=== PATIENT | male | born 2000 | race Caucasian/White ===

== ENCOUNTER 2018-02-11 18:30 | Emergency (ER) | payer SELFPAY ==
[2018-02-11] MEDS ORDERED: Lidocaine 1% with EPINEPHrine 1:100,000 30 ML MDV INJECT ONE (19:06)
[2018-02-11] MEDS ORDERED: Bacitracin Oint 1 GM U/D Packet TOP ONE (19:07)
--- NOTE | 2018-02-11 20:01 | EDM.PDOC ---
ED HPI GENERAL MEDICAL PROBLEM - General Chief Complaint: ENT Problem Stated Complaint: [id number] really busted lip Time Seen by Provider: 02/11/18 19:00 Source of Information: Reports: Patient, Family History Limitations: Reports: No Limitations - History of Present Illness INITIAL COMMENTS - FREE TEXT/NARRATIVE: Palying golf with friend and standing behind when friend was swinging. Stuck in mouth area, Cut to upper lip. No jaw or tooth pain Upper Lip Pain Score (Numeric/FACES): 2 - Related Data Allergies Allergy/AdvReac Type Severity Reaction Status Date / Time No Known Allergies Allergy Verified 12/29/15 01:52 Home Meds: Home Meds Ibuprofen 4 tab PO ASDIRECTED PRN 12/29/15 [History] Past Medical History - Past Health History Medical/Surgical History: Denies Medical/Surgical History Musculoskeletal History: Reports: Fracture - Past Surgical History Musculoskeletal Surgical History: Reports: Other (See Below) Other Musculoskeletal Surgeries/Procedures:: elbow surgery Social & Family History - Tobacco Use Smoking Status *Q: Never Smoker Second Hand Smoke Exposure: No - Caffeine Use Caffeine Use: Reports: Energy Drinks, Soda - Recreational Drug Use Recreational Drug Use: No ED ROS GENERAL - Review of Systems Review Of Systems: ROS reveals no pertinent complaints other than HPI. ED EXAM, SKIN/RASH Exam: See Below Exam Limited By: No Limitations General Appearance: Alert, Mild Distress Eye Exam: Bilateral Eye: EOMI, PERRL Ears: Normal External Exam Nose: Normal Inspection. No: Nasal Tenderness Throat/Mouth: No: Normal Inspection, Normal Lips (laceration left upper) Neck: Normal Inspection Respiratory/Chest: No Respiratory Distress, Lungs Clear, Normal Breath Sounds Cardiovascular: Normal Peripheral Pulses, Regular Rate, Rhythm, Tachycardia Back Exam: Normal Inspection Extremities: Normal Inspection, Normal Range of Motion Neurological: Alert, Oriented, Normal Cognition Psychiatric: Normal Affect Skin: Warm, Dry, Normal Color Location, Skin: Other (1.2 cm deep laceration left upper lip) Associated features: Tenderness ED SKIN PROCEDURES - Laceration/Wound Repair Left Upper Mouth Lac/Wound length In cm: 1.2 Appearance: Subcutaneous Distal NVT: Neuro & Vascular Intact Anesthetic Type: Local Local Anesthesia - Lidocaine (Xylocaine): 1% with EPI Local Anesthetic Volume: 2cc Skin Prep: Chlorhexidine (Hibiciens), Saline Exploration/Debridement/Repair: Wound Explored Closed with: Sutures Suture Size: other # of Sutures: 4 Suture Type: Interrupted Suture Size: 4-0 # of Sutures: 3 Repaired with: Vicryl Sterile Dressing Applied: Nurse Tetanus Status Addressed: Yes Complications: No Course - Vital Signs Last Recorded V/S: Last Vital Signs Temp 99.4 F 02/11/18 20:02 Pulse 99 02/11/18 20:02 Resp 17 02/11/18 20:02 BP 147/79 H 02/11/18 20:02 Pulse Ox 100 02/11/18 20:02 - Orders/Labs/Meds Meds: Medications Discontinued Medications Generic Name Dose Route Start Last Admin Trade Name Bolivarq PRN Reason Stop Dose Admin Bacitracin 1 dose 02/11/18 19:07 02/11/18 19:31 Bacitracin Oint 1 Gm TOP 02/11/18 19:08 1 dose ONETIME ONE Administration Lidocaine/Epinephrine 30 ml 02/11/18 19:06 02/11/18 19:31 Xylocaine 1% With Epinephrine 1:100,000 INJECT 02/11/18 19:07 30 ml ONETIME ONE Administration Departure - Departure Time of Disposition: 19:58 Disposition: Home, Self-Care 01 Condition: Good Clinical Impression: Laceration of lip without complication Qualifiers: Encounter type: initial encounter Qualified Code(s): S01.511A - Laceration without foreign body of lip, initial encounter - Discharge Information Instructions: Mouth Laceration Referrals: PCP,None [Primary Care Provider] - Forms: ED Department Discharge Additional Instructions: Sutures out 7-10days cool pack to upper lip tonight antibiotic ointment to lip follow up with dentist in am bland soft diet, avoid salty, or acidic foods urgent follow up if drainage or increased redness
[2018-02-11 20:03] VITALS: BP 147/79
== END 2018-02-11 20:04 | disposition home or self-care (01) ==
LOC: DL.ED 18:30
DX: S01.511A Laceration without foreign body of lip, initial encounter (principal); W22.8XXA Striking against or struck by other objects, initial encounter; Y93.53 Activity, golf
CPT/HCPCS: 12011; 99282

== ENCOUNTER 2024-12-19 17:37 | Emergency (ER) | payer SELFPAY ==
[2024-12-19 18:42] VITALS: BP 134/76; PULSE 71
== END 2024-12-19 19:11 | disposition home or self-care (01) ==
LOC: DL.ED 17:37
DX: S62.525A Nondisplaced fracture of distal phalanx of left thumb, initial encounter for closed fracture (principal); Z79.899 Other long term (current) drug therapy; X58.XXXA Exposure to other specified factors, initial encounter; Y93.89 Activity, other specified; Y92.9 Unspecified place or not applicable; Y99.0 Civilian activity done for income or pay
CPT/HCPCS: 73140-FA; 99283